=== PATIENT | female | born 1945 | race African-American/Black ===

== ENCOUNTER 2016-04-02 08:51 | Outpatient (CLI) | payer MEDICARE ==
[2016-04-02 09:49] LABS: Anion Gap 15 mmol/L (10-20); BUN (Urea Nitrogen) 29 mg/dL (9.8-20.1); BUN/Creatinine Ratio 22.66; Calc. Creatinine Clearance 0 mL/min (70-130); Calcium 9.3 mg/dL (7.8-10.44); Carbon Dioxide 24 mmol/L (23-31); Chloride 110 mmol/L (98-107); Estimated GFR-MDRD 50
[2016-04-02 10:52] LABS: Hematocrit 33.3 % (36.0-47.0); Mean Platelet Volume 7.8 fL (7.4-10.4); Red Blood Cell (RBC) Count 4.02 mill/uL (4.20-5.40); White Blood Cell (WBC) Count 6.5 thou/uL (4.8-10.8)
[2016-04-02 17:59] LABS: Phosphorus 3.8 mg/dL (2.3-4.7)
== END 2016-04-02 08:52 | disposition home or self-care (01) ==
LOC: BURLAB 08:51
PROVIDERS: ATTEND Internal Medicine Nephrology
DX: E11.22 Type 2 diabetes mellitus with diabetic chronic kidney disease (principal); N18.3 Chronic kidney disease, stage 3 (moderate); I12.9 Hypertensive chronic kidney disease with stage 1 through stage 4 chronic kidney disease, or unspecified chronic kidney disease; I73.9 Peripheral vascular disease, unspecified; N39.0 Urinary tract infection, site not specified; R80.9 Proteinuria, unspecified; M32.10 Systemic lupus erythematosus, organ or system involvement unspecified; M06.9 Rheumatoid arthritis, unspecified; I25.10 Atherosclerotic heart disease of native coronary artery without angina pectoris; M10.9 Gout, unspecified; K21.9 Gastro-esophageal reflux disease without esophagitis
CPT/HCPCS: 36415; 80069; 82570; 84156; 85027

== ENCOUNTER 2016-10-27 21:03 | Emergency (ER) | payer MEDICARE ==
[2016-10-27] MEDS ORDERED: HYDROcodone/Acetaminophen 5/325 mg Tablet ONE (21:31)
== END 2016-10-27 22:17 | disposition home or self-care (01) ==
LOC: BURERS 21:03
DX: T63.2X1A Toxic effect of venom of scorpion, accidental (unintentional), initial encounter (principal); E11.9 Type 2 diabetes mellitus without complications; I10 Essential (primary) hypertension; D64.9 Anemia, unspecified; I51.9 Heart disease, unspecified; F17.220 Nicotine dependence, chewing tobacco, uncomplicated; Z79.899 Other long term (current) drug therapy
CPT/HCPCS: 99282

== ENCOUNTER 2016-10-30 09:05 | Outpatient (CLI) | payer MEDICARE ==
[2016-10-30 09:35] LABS: #Basophils 0.1 thou/uL (0.0-0.2); #Eosinphils 0.1 thou/uL (0.0-0.7); #Lymphocytes 1.1 thou/uL (1.20-3.40); #Monocytes 0.5 thou/uL (0.11-0.59); #Neutrophils 5.3 thou/uL (1.40-6.50); %Basophils 0.7 % (0.0-1.0); %Eosinophils 1.9 % (0.0-10.0); %Lymphocytes 15.8 % (21.0-51.0); %Monocytes 7.2 % (0.0-10.0); %Neutrophils 74.5 % (42.0-75.0); Hemoglobin 10.8 g/dL (12.0-16.0); Mean Corpuscular HGB CONC 32.6 g/dL (32.0-36.0); Mean Corpuscular Hemoglobin 26.9 pg (27.0-31.0); Mean Corpuscular Volume 82.4 fl (81.0-99.0); Mean Platelet Volume 6.8 fL (7.4-10.4); Platelet Count 189 thou/uL (130-400); RBC Distribution Width 12.4 % (11.5-14.5); Red Blood Cell (RBC) Count 4.01 mill/uL (4.20-5.40); White Blood Cell (WBC) Count 7.2 thou/uL (4.8-10.8)
[2016-10-30 09:42] LABS: Bilirubin Negative (Negative); Blood, Urine Negative (Negative); Clarity Clear (Clear); Glucose, Urine (Dipstick) Negative (Negative); Leukocyte Trace (Negative); Nitrite Negative (Negative); Protein, Urine (Dipstick) Negative (Neg-Trace); Specific Gravity, Urine 1.015 (1.005-1.030); Urobilinogen 0.2 mg/dL (0.2-1.0); pH, Urine 5.5 (5.0-9.0)
[2016-10-30 09:51] LABS: Anion Gap 14 mmol/L (10-20); BUN (Urea Nitrogen) 33 mg/dL (9.8-20.1); BUN/Creatinine Ratio 25.19; Bacteria/HPF None Seen HPF (None Seen); Calc. Creatinine Clearance 0 mL/min (70-130); Calcium 9.6 mg/dL (7.8-10.44); Carbon Dioxide 23 mmol/L (23-31); Chloride 110 mmol/L (98-107); Crystals/HPF None Seen HPF (Negative); Estimated GFR-MDRD 48; Glucose 110 mg/dL (83-110); Hyaline Casts/LPF NONE SEEN LPF (0-3 Hyaline); Other Casts/LPF None Seen LPF (0-3 Hyaline); Oval Fat Bodies/HPF None Seen HPF (None Seen); Potassium 4.6 mmol/L (3.5-5.1); RBC/HPF None Seen HPF (0-3); Renal Epithelial None Seen HPF (0-3); Sodium 142 mmol/L (136-145); Sperm/HPF None Seen HPF (None Seen); Squamous Epithelial 0-3 HPF (0-3); Transitional Epithelial NONE SEEN HPF (0-3); Trichomonas/HPF None Seen HPF (None Seen); WBC/HPF 0-3 HPF (0-3); Yeast-All Forms None Seen HPF (None Seen)
[2016-10-30 15:43] LABS: Phosphorus 3.8 mg/dL (2.3-4.7)
[2016-10-30 16:33] LABS: Creatinine, Urine 115.61 mg/dL (47-110)
== END 2016-10-30 09:06 | disposition home or self-care (01) ==
LOC: BURLAB 09:05
PROVIDERS: ATTEND Internal Medicine Nephrology
DX: E11.22 Type 2 diabetes mellitus with diabetic chronic kidney disease (principal); I12.9 Hypertensive chronic kidney disease with stage 1 through stage 4 chronic kidney disease, or unspecified chronic kidney disease; N18.3 Chronic kidney disease, stage 3 (moderate); M06.9 Rheumatoid arthritis, unspecified; I25.10 Atherosclerotic heart disease of native coronary artery without angina pectoris; E11.51 Type 2 diabetes mellitus with diabetic peripheral angiopathy without gangrene; N39.0 Urinary tract infection, site not specified; R80.9 Proteinuria, unspecified; M32.10 Systemic lupus erythematosus, organ or system involvement unspecified; M10.9 Gout, unspecified; K21.9 Gastro-esophageal reflux disease without esophagitis
CPT/HCPCS: 36415; 80069; 81001; 82570; 84156; 85025

== ENCOUNTER 2019-09-23 16:15 | Emergency (ER) | payer MEDICARE ==
[~2019-09-23 16:15] MED LIST: Iopamidol 370 76% 100 ML VIAL ONE
[2019-09-23 16:50] LABS: #Basophils 0.1 thou/uL (0.0-0.2); #Eosinphils 0.1 thou/uL (0.0-0.7); #Lymphocytes 0.8 thou/uL (1.20-3.40); #Monocytes 0.5 thou/uL (0.11-0.59); #Neutrophils 7.4 thou/uL (1.40-6.50); %Basophils 0.7 % (0.0-1.0); %Eosinophils 1.5 % (0.0-10.0); %Lymphocytes 8.9 % (21.0-51.0); %Monocytes 6.1 % (0.0-10.0); %Neutrophils 82.9 % (42.0-75.0); Mean Corpuscular HGB CONC 30.8 g/dL (32.0-36.0); Mean Corpuscular Hemoglobin 25.2 pg (27.0-31.0); Mean Corpuscular Volume 81.9 fL (78.0-98.0); Mean Platelet Volume 8.2 fL (7.4-10.4); Platelet Count 252 thou/uL (130-400); RBC Distribution Width 12.2 % (11.5-14.5); Red Blood Cell (RBC) Count 3.99 mill/uL (4.20-5.40); White Blood Cell (WBC) Count 8.9 thou/uL (4.8-10.8)
[2019-09-23 17:06] LABS: ALT (SGPT) 12 U/L (8-55); AST (SGOT) 20 U/L (5-34); Albumin 3.1 g/dL (3.4-4.8); Alkaline Phosphatase 79 U/L (40-110); Anion Gap 18 mmol/L (10-20); BUN (Urea Nitrogen) 34 mg/dL (9.8-20.1); Bilirubin, Total 0.5 mg/dL (0.2-1.2); Calc. Creatinine Clearance 0 mL/min (70-130); Carbon Dioxide 21 mmol/L (23-31); Chloride 90 mmol/L (98-107); Estimated GFR-MDRD 32; Globulin 4.4 g/dL (2.4-3.5); Glucose 246 mg/dL (83-110); Potassium 4.4 mmol/L (3.5-5.1); Protein, Total 7.5 g/dL (6.0-8.3); Sodium 125 mmol/L (136-145)
--- NOTE | 2019-09-23 17:31 | CT ---
HEAD CT WITHOUT CONTRAST: Date: 09-23-2019 History: Frequent falls, vertigo, weakness. Technique: Axial CT imaging at 5 mm intervals from vertex through skull base without contrast. FINDINGS: The imaged paranasal sinuses and mastoid air cells are well aerated. No displaced calvarial fracture. No intracranial hemorrhage, midline shift, mass effect, or ventricular enlargement. IMPRESSION: NO acute findings. POS: OFF
[2019-09-23] MEDS ORDERED: Aspirin Chewable 81 MG TAB ONE (17:32)
[2019-09-23] MEDS ORDERED: Fentanyl 100 MCG/2 ML VIAL ONE (17:32)
--- NOTE | 2019-09-23 17:37 | RAD ---
FRONTAL RADIOGRAPH PELVIS AND FROGLEG LATERAL VIEW RIGHT HIP: Date: 09-23-2019 History: Recent fall, weakness, right hip pain. FINDINGS: The pelvic ring appears intact with no widening of the sacroiliac joints of the pubic symphysis. The femoral heads project normally over their respective acetabulum. There is superior joint space narrow ing involving the right hip with right acetabular osteophyte formation. No displaced fracture or disl ocation is seen. IMPRESSION: Degenerative change with no acute fracture or dislocation seen. POS: OFF
--- NOTE | 2019-09-23 17:43 | RAD ---
FRONTAL RADIOGRAPH CHEST: Date: 09-23-2019 Comparison: 07-10-2019 History: Recent falls with lightheadedness, cough, and generalized weakness. FINDINGS: Increased lung interstitial density is noted in the perihilar regions in both lung bases, left greate r than right. No pneumothorax or large volume pleural effusion is seen. There are coarse increased li near interstitial densities with probable bronchiectasis in the lung bases. Opacity in the lung bases has worsened since the 07-10-2019 exam and thus, superimposed infection cannot be excluded. IMPRESSION: Defuse increased interstitial density with a bibasilar predominance, left greater than right. Finding s may all be chronic in nature, but superimposed infectious pneumonitis cannot be excluded. POS: OFF
[2019-09-23] MEDS ORDERED: cefTRIAXone\\ROCEPHIN 2 GM VIAL ONE (18:12)
[2019-09-23] MEDS ORDERED: Azithromycin 500 MG VIAL ONE (18:12)
[2019-09-23] MEDS ORDERED: Sodium Chloride 0.9% 200 ML ONE (18:14)
[2019-09-23 19:42] LABS: Bilirubin Negative (Negative); Blood, Urine Trace (Negative); Clarity Slightly Cloudy (Clear); Glucose, Urine (Dipstick) Negative (Negative); Ketone, Urine Negative (Negative); Leukocyte Negative (Negative); Nitrite Negative (Negative); Protein, Urine (Dipstick) Negative (Neg-Trace); pH, Urine 5.5 (5.0-9.0)
[2019-09-23 19:44] LABS: Specific Gravity, Urine 1.006 (1.002-1.036)
[2019-09-23 20:11] LABS: Bacteria/HPF Rare-Few HPF (None Seen); RBC/HPF 0-3 HPF (0-3); Squamous Epithelial 0-3 HPF (0-3); WBC/HPF 0-3 HPF (0-3)
--- NOTE | 2019-09-23 20:46 | CT ---
CT ANGIOGRAM OF CHEST: Date: 09/23/2019 HISTORY: Recent falls with lightheadedness, cough, and generalized weakness. TECHNIQUE: Axial CT imaging at 2.5 mm intervals through the chest with IV contrast using CT angiogram protocol. Bilateral oblique 3D reformatted imaging obtained. FINDINGS: The thyroid gland is heterogeneous and contains multiple hypodense nodules measuring up to 1.7 cm on the left. Follow-up thyroid ultrasound suggested. Mildly prominent bilateral axillary lymph nodes are noted. There is damian prominence in the subcarinal region measuring 1.5 cm. Enlarged right paratrach eal and precarinal lymph nodes are noted measuring up to 1.3 cm. There is a prominent 1.1 cm right hi lar node and a 1.1 cm left hilar node. The main pulmonary artery is enlarged, suggesting pulmonary hypertension. No discrete filling defect is seen within the pulmonary arterial vasculature to suggest the presence of acute pulmonary thromboe mbolism. Please note that distal pulmonary arteries are not well assessed secondary to motion, partic ularly the distal pulmonary artery supplying bilateral lower lobes. Motion artifact limits detailed a ssessment of the upper abdomen. No significant pleural, pericardial or mediastinal fluid is seen. The left upper lobe demonstrates anterior medial bronchiectasis with subpleural cystic change and coa rse linear peripheral interstitial fibrotic changes. Within the left lower lobe, there is diffuse bro nchiectasis with prominent coarse linear interstitial density. Similar less severe findings are noted within the inferior right middle lobe and the right lower lobe inferiorly/medially. There is hazy gr ound-glass opacity within both lower lobes, but assessment is limited secondary to prominent motion a rtifact. Review of the osseous structures demonstrates no worrisome lytic or blastic bone lesions. IMPRESSION: 1. No central pulmonary arterial embolism. Motion artifact limits detailed assessment of the distal pulmonary arteries, as well as bilateral lower lobes. There are fibrotic changes with bronchiectasis bilaterally, left greater than right. Superimposed ground-glass opacity noted in both lung bases whic h may signify superimposed infectious pneumonitis, but could also simply be on the basis of prominent motion artifact. Recommend short-term follow-up imaging as clinically warranted. 2. Mediastinal and bilateral hilar adenopathy, nonspecific. 3. Thyroid nodules for which nonemergent follow-up thyroid ultrasound is advised. CODE T. POS: OFF
== END 2019-09-23 20:27 | disposition short-term general hospital (02) ==
LOC: BURERS 16:15
DX: J18.9 Pneumonia, unspecified organism (principal); E87.1 Hypo-osmolality and hyponatremia; D63.1 Anemia in chronic kidney disease; I12.9 Hypertensive chronic kidney disease with stage 1 through stage 4 chronic kidney disease, or unspecified chronic kidney disease; N18.3 Chronic kidney disease, stage 3 (moderate); E11.22 Type 2 diabetes mellitus with diabetic chronic kidney disease; F17.220 Nicotine dependence, chewing tobacco, uncomplicated; Z79.899 Other long term (current) drug therapy
CPT/HCPCS: 51701; 70450; 71045; 71275; 80053; 81003; 81015; 83880; 84484; 85025; 87040; 93005; 96361; 96365; 96366; 96375; J0456; J0696; J3010; J3490; Q9967

== ENCOUNTER 2019-10-02 18:02 | Inpatient (IN) | payer MEDICARE ==
[2019-10-02] MEDS ORDERED: SODIUM CHLORIDE 0.9% IV SCH (20:30)
[2019-10-02] MEDS ORDERED: [UNRECOGNIZED DRUG - OTHER] IV SCH (20:30)
[2019-10-02] MEDS: Carvedilol 25 MG TAB PO SCH (21:27)
[2019-10-02] MEDS: Megestrol Acetate 40 MG TAB PO SCH (21:27)
[2019-10-02] MEDS: Sodium Chloride 0.9% 1,000 ML IV SCH (21:28)
[2019-10-02 22:45] VITALS: BMI 20.3
[2019-10-03 05:18] LABS: Anion Gap 15 mmol/L (10-20); BUN (Urea Nitrogen) 59 mg/dL (9.8-20.1); Calc. Creatinine Clearance 17 mL/min (70-130); Calcium 8.3 mg/dL (7.8-10.44); Carbon Dioxide 15 mmol/L (23-31); Chloride 110 mmol/L (98-107); Estimated GFR-MDRD 24; Glucose 218 mg/dL (83-110); Potassium 4.3 mmol/L (3.5-5.1); Sodium 136 mmol/L (136-145)
[2019-10-03 05:54] LABS: Burr Cells SLIGHT = 2-5 cells (100X) (0-1/hpf); Hemoglobin 8.8 g/dL (12.0-16.0); Hypochromia SLIGHT = 6-15 cells (100X) (0-5/hpf); Lymphocytes 6 % (21-51); MDiff Complete? YES; Mean Corpuscular HGB CONC 30.7 g/dL (32.0-36.0); Mean Corpuscular Hemoglobin 25.4 pg (27.0-31.0); Mean Corpuscular Volume 82.7 fL (78.0-98.0); Mean Platelet Volume 8.3 fL (7.4-10.4); Monocytes 6 % (0-10); Neutrophil 86 % (42-75); Ovalocytes SLIGHT = 2-5 cells (100X) (0-1/hpf); Platelet Count 273 thou/uL (130-400); Platelet Morphology Comment Appears Adequate; RBC Distribution Width 13.1 % (11.5-14.5); Reactive Lymphocytes 1 % (0-10); Red Blood Cell (RBC) Count 3.45 mill/uL (4.20-5.40); White Blood Cell (WBC) Count 20.9 thou/uL (4.8-10.8)
[2019-10-03] MEDS ORDERED: Dextrose 5% in Water 1,000 ML IV PRN (07:13)
[2019-10-03] MEDS ORDERED: Dextrose 50% Abboject 50 ML SYRINGE SLOW IVP PRN (07:13)
[2019-10-03] MEDS ORDERED: Insulin Glargine 10 UNITS in Pre-Filled Syringe 1 EACH SC SCH (09:00)
[2019-10-03] MEDS: Hydroxychloroquine Sulfate 200 MG TAB PO SCH ×2 (09:22→21:10)
[2019-10-03] MEDS: predniSONE 20 MG TAB PO SCH (09:22)
[2019-10-03] MEDS: Carvedilol 25 MG TAB PO SCH ×2 (09:23→21:10)
[2019-10-03] MEDS: Enoxaparin Sodium 30 MG/0.3 ML SYRINGE SC SCH (09:23)
[2019-10-03] MEDS: Furosemide 20 MG TAB PO SCH (09:23)
[2019-10-03] MEDS: Megestrol Acetate 40 MG TAB PO SCH ×2 (09:23→21:10)
[2019-10-03] MEDS: HumaLOG 300 UNITS/3 ML VIAL SC PRN ×4 (09:23→21:12)
[2019-10-03] MEDS: Lantus 1000 UNITS/10 ML VIAL SC SCH (09:23)
[2019-10-03] MEDS: Saccharomyces boulardii 250 MG CAP PO SCH (09:23)
[2019-10-03] MEDS: Losartan Potassium 50 MG TAB PO SCH (09:23)
[2019-10-03] MEDS: Sodium Chloride 0.9% 1,000 ML IV SCH ×2 (09:49→23:44)
[2019-10-03] MEDS: Budesonide 0.5 MG/2 ML NEB INH SCH (18:15)
[2019-10-04 05:00] LABS: Lactic Acid 0.8 mmol/L (0.5-2.2)
[2019-10-04 05:03] LABS: #Basophils 0.1 thou/uL (0.0-0.2); #Eosinphils 0.1 thou/uL (0.0-0.7); #Lymphocytes 1.7 thou/uL (1.20-3.40); #Monocytes 1.9 thou/uL (0.11-0.59); #Neutrophils 21.1 thou/uL (1.40-6.50); %Basophils 0.4 % (0.0-1.0); %Eosinophils 0.4 % (0.0-10.0); %Lymphocytes 6.7 % (21.0-51.0); %Monocytes 7.7 % (0.0-10.0); %Neutrophils 84.8 % (42.0-75.0); Hemoglobin 8.4 g/dL (12.0-16.0); Mean Corpuscular HGB CONC 30.6 g/dL (32.0-36.0); Mean Corpuscular Hemoglobin 25.2 pg (27.0-31.0); Mean Corpuscular Volume 82.4 fL (78.0-98.0); Mean Platelet Volume 7.7 fL (7.4-10.4); Platelet Count 258 thou/uL (130-400); Red Blood Cell (RBC) Count 3.31 mill/uL (4.20-5.40); White Blood Cell (WBC) Count 24.8 thou/uL (4.8-10.8)
[2019-10-04 05:09] LABS: ALT (SGPT) Less than 7 U/L (8-55); AST (SGOT) 11 U/L (5-34); Albumin 2.2 g/dL (3.4-4.8); Alkaline Phosphatase 55 U/L (40-110); Anion Gap 12 mmol/L (10-20); BUN (Urea Nitrogen) 53 mg/dL (9.8-20.1); Bilirubin, Total 0.3 mg/dL (0.2-1.2); Calc. Creatinine Clearance 19 mL/min (70-130); Calcium 7.9 mg/dL (7.8-10.44); Carbon Dioxide 16 mmol/L (23-31); Chloride 113 mmol/L (98-107); Estimated GFR-MDRD 27; Glucose 197 mg/dL (83-110); Protein, Total 5.2 g/dL (6.0-8.3); Sodium 137 mmol/L (136-145)
[2019-10-04] MEDS: Budesonide 0.5 MG/2 ML NEB INH SCH ×2 (06:08→18:56)
[2019-10-04] MEDS ORDERED: Sodium Chloride 0.9% 1,000 ML IV SCH (06:57)
[2019-10-04] MEDS: Enoxaparin Sodium 30 MG/0.3 ML SYRINGE SC SCH (08:53)
[2019-10-04] MEDS: predniSONE 20 MG TAB PO SCH (08:54)
[2019-10-04] MEDS: Carvedilol 25 MG TAB PO SCH ×2 (08:54→20:19)
[2019-10-04] MEDS: Megestrol Acetate 40 MG TAB PO SCH ×2 (08:55→20:19)
[2019-10-04] MEDS: Hydroxychloroquine Sulfate 200 MG TAB PO SCH ×2 (08:55→20:19)
[2019-10-04] MEDS: Furosemide 20 MG TAB PO SCH (08:55)
[2019-10-04] MEDS: Losartan Potassium 50 MG TAB PO SCH (08:55)
[2019-10-04] MEDS: Saccharomyces boulardii 250 MG CAP PO SCH (08:56)
[2019-10-04] MEDS: Lantus 1000 UNITS/10 ML VIAL SC SCH (09:02)
[2019-10-04] MEDS: HumaLOG 300 UNITS/3 ML VIAL SC PRN ×3 (12:55→21:01)
[2019-10-05 05:37] LABS: ALT (SGPT) 7 U/L (8-55); AST (SGOT) 7 U/L (5-34); Albumin 2.3 g/dL (3.4-4.8); Alkaline Phosphatase 57 U/L (40-110); Anion Gap 13 mmol/L (10-20); BUN (Urea Nitrogen) 51 mg/dL (9.8-20.1); Bilirubin, Total 0.3 mg/dL (0.2-1.2); Calc. Creatinine Clearance 18 mL/min (70-130); Calcium 8.1 mg/dL (7.8-10.44); Carbon Dioxide 17 mmol/L (23-31); Chloride 113 mmol/L (98-107); Estimated GFR-MDRD 25; Globulin 3.1 g/dL (2.4-3.5); Glucose 246 mg/dL (83-110); Protein, Total 5.4 g/dL (6.0-8.3); Sodium 139 mmol/L (136-145)
[2019-10-05 05:55] LABS: #Eosinphils 0.1 thou/uL (0.0-0.7); #Lymphocytes 1.6 thou/uL (1.20-3.40); #Monocytes 1.6 thou/uL (0.11-0.59); #Neutrophils 23.4 thou/uL (1.40-6.50); %Basophils 0.1 % (0.0-1.0); %Eosinophils 0.6 % (0.0-10.0); %Lymphocytes 5.9 % (21.0-51.0); %Neutrophils 87.4 % (42.0-75.0); Hemoglobin 8.7 g/dL (12.0-16.0); Mean Corpuscular HGB CONC 29.9 g/dL (32.0-36.0); Mean Corpuscular Hemoglobin 24.7 pg (27.0-31.0); Mean Corpuscular Volume 82.6 fL (78.0-98.0); Mean Platelet Volume 7.5 fL (7.4-10.4); Platelet Count 272 thou/uL (130-400); RBC Distribution Width 13.2 % (11.5-14.5); Red Blood Cell (RBC) Count 3.52 mill/uL (4.20-5.40); White Blood Cell (WBC) Count 26.8 thou/uL (4.8-10.8)
[2019-10-05 06:22] LABS: Burr Cells SLIGHT = 2-5 cells (100X) (0-1/hpf); MDiff Complete? YES; Platelet Morphology Comment Appears Adequate; Poikilocytosis SLIGHT = 6-15 cells (100X) (0-5/hpf); Schistocytes SLIGHT = 2-5 cells (100X) (0-1/hpf)
[2019-10-05] MEDS: Budesonide 0.5 MG/2 ML NEB INH SCH ×2 (06:22→18:00)
[2019-10-05] MEDS: predniSONE 20 MG TAB PO SCH (08:37)
[2019-10-05] MEDS: Saccharomyces boulardii 250 MG CAP PO SCH (08:37)
[2019-10-05] MEDS: Carvedilol 25 MG TAB PO SCH ×2 (08:37→20:13)
[2019-10-05] MEDS: Hydroxychloroquine Sulfate 200 MG TAB PO SCH ×2 (08:37→20:17)
[2019-10-05] MEDS: Furosemide 20 MG TAB PO SCH (08:38)
[2019-10-05] MEDS: Megestrol Acetate 40 MG TAB PO SCH ×2 (08:38→20:13)
[2019-10-05] MEDS: Losartan Potassium 50 MG TAB PO SCH (08:38)
[2019-10-05] MEDS: Enoxaparin Sodium 30 MG/0.3 ML SYRINGE SC SCH (08:39)
[2019-10-05] MEDS ORDERED: Lantus 1000 UNITS/10 ML VIAL SC SCH (09:00)
[2019-10-05] MEDS: HumaLOG 300 UNITS/3 ML VIAL SC PRN ×2 (12:48→17:27)
--- NOTE | 2019-10-05 19:55 | RAD ---
PORTABLE CHEST: 10/05/19 An AP portable film at 0738 is compared with prior studies dated 09/26 and 07/10/19. The heart is upper normal in size but not substantially different than before. There are diffuse inte rstitial infiltrates present bilaterally but worse on the left than the right. My suspicion is that s ome degree of this is pulmonary edema, and some degree is likely chronic fibrosis looking at prior st udies but the more confluent area in the left upper lobe is such that I cannot exclude infection eith er. There are no large pleural effusions. IMPRESSION: Diffuse interstitial infiltrates which have worsened some since 09/22. Edema on top of fibrosis and po ssibly superimposed infection are all major considerations. POS: HOME
[2019-10-05] MEDS: cloNIDine 0.1 MG TAB PO PRN (20:13)
[2019-10-05] MEDS ORDERED: HumaLOG 300 UNITS/3 ML VIAL SC SCH (22:00)
[2019-10-06] MEDS: Budesonide 0.5 MG/2 ML NEB INH SCH ×2 (06:33→18:07)
[2019-10-06] MEDS: Lantus 1000 UNITS/10 ML VIAL SC SCH (09:12)
[2019-10-06] MEDS: Furosemide 20 MG TAB PO SCH (09:12)
[2019-10-06] MEDS: Enoxaparin Sodium 30 MG/0.3 ML SYRINGE SC SCH (09:12)
[2019-10-06] MEDS: Megestrol Acetate 40 MG TAB PO SCH ×2 (09:13→20:07)
[2019-10-06] MEDS: predniSONE 20 MG TAB PO SCH (09:13)
[2019-10-06] MEDS: Saccharomyces boulardii 250 MG CAP PO SCH (09:13)
[2019-10-06] MEDS: Carvedilol 25 MG TAB PO SCH ×2 (09:14→20:07)
[2019-10-06] MEDS: Hydroxychloroquine Sulfate 200 MG TAB PO SCH ×2 (09:14→20:07)
[2019-10-06] MEDS: Losartan Potassium 50 MG TAB PO SCH (09:14)
[2019-10-06] MEDS: HumaLOG 300 UNITS/3 ML VIAL SC PRN ×3 (09:19→17:45)
[2019-10-06] MEDS ORDERED: HumaLOG 300 UNITS/3 ML VIAL SC SCH (21:00)
[2019-10-07] MEDS: Budesonide 0.5 MG/2 ML NEB INH SCH ×2 (06:03→18:05)
[2019-10-07] MEDS: Furosemide 20 MG TAB PO SCH (08:49)
[2019-10-07] MEDS: Enoxaparin Sodium 30 MG/0.3 ML SYRINGE SC SCH (08:49)
[2019-10-07] MEDS: predniSONE 20 MG TAB PO SCH (08:49)
[2019-10-07] MEDS: Saccharomyces boulardii 250 MG CAP PO SCH (08:49)
[2019-10-07] MEDS: Hydroxychloroquine Sulfate 200 MG TAB PO SCH ×2 (08:50→20:26)
[2019-10-07] MEDS: Losartan Potassium 50 MG TAB PO SCH (08:50)
[2019-10-07] MEDS: Carvedilol 25 MG TAB PO SCH ×2 (08:50→20:26)
[2019-10-07] MEDS: Megestrol Acetate 40 MG TAB PO SCH ×2 (08:50→20:26)
[2019-10-07] MEDS: Lantus 1000 UNITS/10 ML VIAL SC SCH (08:54)
[2019-10-07] MEDS: HumaLOG 300 UNITS/3 ML VIAL SC PRN ×3 (13:00→20:26)
[2019-10-08] MEDS: cloNIDine 0.1 MG TAB PO PRN (05:03)
[2019-10-08] MEDS: Budesonide 0.5 MG/2 ML NEB INH SCH ×2 (06:24→18:07)
[2019-10-08 08:19] LABS: ALT (SGPT) 8 U/L (8-55); AST (SGOT) 10 U/L (5-34); Albumin 2.5 g/dL (3.4-4.8); Alkaline Phosphatase 53 U/L (40-110); Anion Gap 14 mmol/L (10-20); BUN (Urea Nitrogen) 45 mg/dL (9.8-20.1); Bilirubin, Total 0.4 mg/dL (0.2-1.2); Calc. Creatinine Clearance 22 mL/min (70-130); Calcium 8.4 mg/dL (7.8-10.44); Carbon Dioxide 20 mmol/L (23-31); Chloride 112 mmol/L (98-107); Estimated GFR-MDRD 32; Globulin 2.9 g/dL (2.4-3.5); Glucose 145 mg/dL (83-110); Potassium 3.7 mmol/L (3.5-5.1); Protein, Total 5.4 g/dL (6.0-8.3); Sodium 142 mmol/L (136-145)
[2019-10-08] MEDS: Megestrol Acetate 40 MG TAB PO SCH ×2 (08:32→20:54)
[2019-10-08] MEDS: Hydroxychloroquine Sulfate 200 MG TAB PO SCH ×2 (08:33→20:53)
[2019-10-08] MEDS: Carvedilol 25 MG TAB PO SCH ×2 (08:33→20:53)
[2019-10-08] MEDS: predniSONE 20 MG TAB PO SCH (08:33)
[2019-10-08] MEDS: Furosemide 20 MG TAB PO SCH (08:33)
[2019-10-08] MEDS: Losartan Potassium 50 MG TAB PO SCH (08:33)
[2019-10-08] MEDS: Saccharomyces boulardii 250 MG CAP PO SCH (08:33)
[2019-10-08] MEDS: Enoxaparin Sodium 30 MG/0.3 ML SYRINGE SC SCH (08:34)
[2019-10-08] MEDS: HumaLOG 300 UNITS/3 ML VIAL SC PRN ×3 (08:35→20:53)
[2019-10-08] MEDS: Lantus 1000 UNITS/10 ML VIAL SC SCH (08:35)
[2019-10-08 11:11] LABS: Hemoglobin 8.8 g/dL (12.0-16.0); MDiff Complete? YES; Mean Corpuscular HGB CONC 30.4 g/dL (32.0-36.0); Mean Corpuscular Hemoglobin 24.8 pg (27.0-31.0); Mean Corpuscular Volume 81.6 fL (78.0-98.0); Mean Platelet Volume 7.6 fL (7.4-10.4); Platelet Count 223 thou/uL (130-400); RBC Distribution Width 13.5 % (11.5-14.5); Red Blood Cell (RBC) Count 3.56 mill/uL (4.20-5.40); White Blood Cell (WBC) Count 27.1 thou/uL (4.8-10.8)
[2019-10-08 11:12] LABS: Anisocytosis SLIGHT = 6-15 cells (100X) (0-5/hpf); Burr Cells SLIGHT = 2-5 cells (100X) (0-1/hpf); Eosinophils 2 % (0-10); Hypochromia SLIGHT = 6-15 cells (100X) (0-5/hpf); Lymphocytes 8 % (21-51); Monocytes 5 % (0-10); Neutrophil 85 % (42-75); Platelet Morphology Comment Appears Adequate; Poikilocytosis SLIGHT = 6-15 cells (100X) (0-5/hpf)
[2019-10-09] MEDS: Budesonide 0.5 MG/2 ML NEB INH SCH ×2 (06:11→18:09)
[2019-10-09] MEDS: Enoxaparin Sodium 30 MG/0.3 ML SYRINGE SC SCH (08:26)
[2019-10-09] MEDS: predniSONE 20 MG TAB PO SCH (08:26)
[2019-10-09] MEDS: Carvedilol 25 MG TAB PO SCH ×2 (08:26→20:34)
[2019-10-09] MEDS: Furosemide 20 MG TAB PO SCH (08:27)
[2019-10-09] MEDS: Saccharomyces boulardii 250 MG CAP PO SCH (08:27)
[2019-10-09] MEDS: Megestrol Acetate 40 MG TAB PO SCH ×2 (08:27→20:34)
[2019-10-09] MEDS: Hydroxychloroquine Sulfate 200 MG TAB PO SCH ×2 (08:27→20:34)
[2019-10-09] MEDS: Lantus 1000 UNITS/10 ML VIAL SC SCH (08:32)
[2019-10-09] MEDS: HumaLOG 300 UNITS/3 ML VIAL SC PRN ×4 (08:33→20:35)
[2019-10-09] MEDS: Losartan Potassium 50 MG TAB PO SCH (09:39)
[2019-10-10] MEDS: Budesonide 0.5 MG/2 ML NEB INH SCH ×2 (06:02→17:44)
[2019-10-10] MEDS: Lantus 1000 UNITS/10 ML VIAL SC SCH (08:35)
[2019-10-10] MEDS: predniSONE 20 MG TAB PO SCH (08:36)
[2019-10-10] MEDS: Enoxaparin Sodium 30 MG/0.3 ML SYRINGE SC SCH (08:36)
[2019-10-10] MEDS: Carvedilol 25 MG TAB PO SCH ×2 (08:36→20:52)
[2019-10-10] MEDS: Saccharomyces boulardii 250 MG CAP PO SCH (08:36)
[2019-10-10] MEDS: Losartan Potassium 50 MG TAB PO SCH (08:37)
[2019-10-10] MEDS: Hydroxychloroquine Sulfate 200 MG TAB PO SCH ×2 (08:37→20:51)
[2019-10-10] MEDS: Furosemide 20 MG TAB PO SCH (08:37)
[2019-10-10] MEDS: Megestrol Acetate 40 MG TAB PO SCH ×2 (08:38→20:52)
[2019-10-10] MEDS: HumaLOG 300 UNITS/3 ML VIAL SC PRN ×3 (12:32→20:52)
[2019-10-11] MEDS: Budesonide 0.5 MG/2 ML NEB INH SCH ×2 (06:01→17:53)
[2019-10-11] MEDS: Enoxaparin Sodium 30 MG/0.3 ML SYRINGE SC SCH (09:18)
[2019-10-11] MEDS: Saccharomyces boulardii 250 MG CAP PO SCH (09:18)
[2019-10-11] MEDS: Furosemide 20 MG TAB PO SCH (09:19)
[2019-10-11] MEDS: Carvedilol 25 MG TAB PO SCH ×2 (09:19→20:32)
[2019-10-11] MEDS: predniSONE 20 MG TAB PO SCH (09:19)
[2019-10-11] MEDS: Megestrol Acetate 40 MG TAB PO SCH ×2 (09:19→20:32)
[2019-10-11] MEDS: Lantus 1000 UNITS/10 ML VIAL SC SCH (09:19)
[2019-10-11] MEDS: Losartan Potassium 50 MG TAB PO SCH (09:20)
[2019-10-11] MEDS: Hydroxychloroquine Sulfate 200 MG TAB PO SCH ×2 (09:20→20:37)
[2019-10-11] MEDS: HumaLOG 300 UNITS/3 ML VIAL SC PRN ×2 (12:54→17:52)
[2019-10-11] MEDS: hydrALAZINE 25 MG TAB PO SCH ×2 (15:04→20:32)
[2019-10-12 05:29] LABS: #Basophils 0.1 thou/uL (0.0-0.2); #Eosinphils 0.1 thou/uL (0.0-0.7); #Lymphocytes 2.2 thou/uL (1.20-3.40); #Monocytes 1.7 thou/uL (0.11-0.59); #Neutrophils 20.3 thou/uL (1.40-6.50); %Basophils 0.4 % (0.0-1.0); %Eosinophils 0.4 % (0.0-10.0); %Monocytes 6.9 % (0.0-10.0); %Neutrophils 83.2 % (42.0-75.0); Hemoglobin 8.5 g/dL (12.0-16.0); Mean Corpuscular HGB CONC 30.6 g/dL (32.0-36.0); Mean Corpuscular Hemoglobin 25.4 pg (27.0-31.0); Mean Platelet Volume 8.7 fL (7.4-10.4); Platelet Count 198 thou/uL (130-400); RBC Distribution Width 14.3 % (11.5-14.5); Red Blood Cell (RBC) Count 3.35 mill/uL (4.20-5.40); White Blood Cell (WBC) Count 24.4 thou/uL (4.8-10.8)
[2019-10-12 05:31] LABS: ALT (SGPT) 8 U/L (8-55); AST (SGOT) 11 U/L (5-34); Albumin 2.5 g/dL (3.4-4.8); Alkaline Phosphatase 53 U/L (40-110); Anion Gap 13 mmol/L (10-20); BUN (Urea Nitrogen) 50 mg/dL (9.8-20.1); Bilirubin, Total 0.3 mg/dL (0.2-1.2); Calc. Creatinine Clearance 20 mL/min (70-130); Calcium 8.2 mg/dL (7.8-10.44); Carbon Dioxide 22 mmol/L (23-31); Chloride 109 mmol/L (98-107); Estimated GFR-MDRD 29; Glucose 125 mg/dL (83-110); Potassium 4.2 mmol/L (3.5-5.1); Protein, Total 5.5 g/dL (6.0-8.3); Sodium 140 mmol/L (136-145)
[2019-10-12] MEDS: Budesonide 0.5 MG/2 ML NEB INH SCH ×3 (05:41→17:18)
[2019-10-12] MEDS ORDERED: Promethazine DM 6.25-15mg/5ml 120 ML BOT PO PRN (07:21)
[2019-10-12] MEDS: Ferrous Sulfate 325 MG TAB PO SCH (08:58)
[2019-10-12] MEDS: hydrALAZINE 25 MG TAB PO SCH ×3 (08:59→20:07)
[2019-10-12] MEDS: Carvedilol 25 MG TAB PO SCH ×2 (08:59→20:06)
[2019-10-12] MEDS: Hydroxychloroquine Sulfate 200 MG TAB PO SCH ×2 (08:59→20:06)
[2019-10-12] MEDS: Enoxaparin Sodium 30 MG/0.3 ML SYRINGE SC SCH (08:59)
[2019-10-12] MEDS: Furosemide 20 MG TAB PO SCH (09:00)
[2019-10-12] MEDS: Saccharomyces boulardii 250 MG CAP PO SCH (09:00)
[2019-10-12] MEDS: predniSONE 20 MG TAB PO SCH (09:00)
[2019-10-12] MEDS: Megestrol Acetate 40 MG TAB PO SCH ×2 (09:00→20:06)
[2019-10-12] MEDS: Lantus 1000 UNITS/10 ML VIAL SC SCH (09:01)
[2019-10-12] MEDS: Guaifenesin DM 100-10/5 ML UDCUP PO PRN ×2 (13:13→20:06)
[2019-10-12] MEDS: HumaLOG 300 UNITS/3 ML VIAL SC PRN ×3 (13:14→20:07)
[2019-10-13] MEDS: Guaifenesin DM 100-10/5 ML UDCUP PO PRN ×3 (00:09→20:42)
[2019-10-13] MEDS: Budesonide 0.5 MG/2 ML NEB INH SCH ×2 (05:19→18:18)
[2019-10-13] MEDS: Megestrol Acetate 40 MG TAB PO SCH ×2 (09:07→20:10)
[2019-10-13] MEDS: predniSONE 20 MG TAB PO SCH (09:07)
[2019-10-13] MEDS: hydrALAZINE 25 MG TAB PO SCH ×3 (09:08→20:10)
[2019-10-13] MEDS: Carvedilol 25 MG TAB PO SCH ×2 (09:09→20:10)
[2019-10-13] MEDS: Enoxaparin Sodium 30 MG/0.3 ML SYRINGE SC SCH (09:09)
[2019-10-13] MEDS: Hydroxychloroquine Sulfate 200 MG TAB PO SCH ×2 (09:09→20:10)
[2019-10-13] MEDS: Ferrous Sulfate 325 MG TAB PO SCH (09:09)
[2019-10-13] MEDS: Saccharomyces boulardii 250 MG CAP PO SCH (09:09)
[2019-10-13] MEDS: Furosemide 20 MG TAB PO SCH (09:09)
[2019-10-13] MEDS: Lantus 1000 UNITS/10 ML VIAL SC SCH (09:11)
[2019-10-13] MEDS: HumaLOG 300 UNITS/3 ML VIAL SC PRN ×3 (12:30→20:13)
[2019-10-14] MEDS: Budesonide 0.5 MG/2 ML NEB INH SCH ×2 (07:04→17:58)
[2019-10-14] MEDS: Hydroxychloroquine Sulfate 200 MG TAB PO SCH ×2 (09:20→20:24)
[2019-10-14] MEDS: hydrALAZINE 25 MG TAB PO SCH ×3 (09:21→20:24)
[2019-10-14] MEDS: Carvedilol 25 MG TAB PO SCH ×2 (09:21→20:23)
[2019-10-14] MEDS: predniSONE 20 MG TAB PO SCH (09:22)
[2019-10-14] MEDS: Saccharomyces boulardii 250 MG CAP PO SCH (09:22)
[2019-10-14] MEDS: Megestrol Acetate 40 MG TAB PO SCH ×2 (09:23→20:24)
[2019-10-14] MEDS: Furosemide 20 MG TAB PO SCH (09:23)
[2019-10-14] MEDS: Ferrous Sulfate 325 MG TAB PO SCH (09:23)
[2019-10-14] MEDS: Enoxaparin Sodium 30 MG/0.3 ML SYRINGE SC SCH (09:23)
[2019-10-14] MEDS: Lantus 1000 UNITS/10 ML VIAL SC SCH (09:24)
[2019-10-14] MEDS: HumaLOG 300 UNITS/3 ML VIAL SC PRN ×3 (12:58→20:18)
[2019-10-14] MEDS: Guaifenesin DM 100-10/5 ML UDCUP PO PRN (17:58)
[2019-10-15 05:25] VITALS: TEMP 98.6
[2019-10-15 05:27] LABS: #Basophils 0.1 thou/uL (0.0-0.2); #Eosinphils 0.1 thou/uL (0.0-0.7); #Lymphocytes 1.7 thou/uL (1.20-3.40); #Monocytes 1.4 thou/uL (0.11-0.59); #Neutrophils 21.3 thou/uL (1.40-6.50); %Basophils 0.4 % (0.0-1.0); %Eosinophils 0.2 % (0.0-10.0); %Monocytes 5.5 % (0.0-10.0); %Neutrophils 86.9 % (42.0-75.0); Hemoglobin 8.2 g/dL (12.0-16.0); Mean Corpuscular HGB CONC 29.9 g/dL (32.0-36.0); Mean Corpuscular Hemoglobin 25.5 pg (27.0-31.0); Mean Corpuscular Volume 85.2 fL (78.0-98.0); Mean Platelet Volume 7.6 fL (7.4-10.4); Platelet Count 184 thou/uL (130-400); RBC Distribution Width 14.1 % (11.5-14.5); Red Blood Cell (RBC) Count 3.23 mill/uL (4.20-5.40); White Blood Cell (WBC) Count 24.6 thou/uL (4.8-10.8)
[2019-10-15 05:47] LABS: ALT (SGPT) Less than 7 U/L (8-55); AST (SGOT) 16 U/L (5-34); Albumin 2.5 g/dL (3.4-4.8); Alkaline Phosphatase 53 U/L (40-110); Anion Gap 15 mmol/L (10-20); BUN (Urea Nitrogen) 58 mg/dL (9.8-20.1); Bilirubin, Total 0.3 mg/dL (0.2-1.2); Calc. Creatinine Clearance 17 mL/min (70-130); Calcium 8.1 mg/dL (7.8-10.44); Carbon Dioxide 21 mmol/L (23-31); Chloride 110 mmol/L (98-107); Estimated GFR-MDRD 24; Globulin 2.9 g/dL (2.4-3.5); Glucose 151 mg/dL (83-110); Potassium 4.6 mmol/L (3.5-5.1); Protein, Total 5.4 g/dL (6.0-8.3); Sodium 141 mmol/L (136-145)
[2019-10-15] MEDS: Budesonide 0.5 MG/2 ML NEB INH SCH (06:16)
--- NOTE | 2019-10-15 08:03 | RAD ---
PORTABLE CHEST: DATE: 10/15/2019. FINDINGS: An AP portable film at 0538 is compared with several prior chest films. Chronic interstitial changes are present. The more confluent area seen on some of the recent films that are thought to be superi mposed pneumonia have improved. What is left now is a diffuse interstitial pattern that I presume is the patient's baseline fibrosis, bronchiectasis, etc. There are no large effusions. Mild cardiomeg mahogany is present as usual. There is no gross congestion of vessels. IMPRESSION: Severe chronic changes, but overall, the appearance of the chest has improved with a reduction in con fluent areas since films done last month. POS: HOME
[2019-10-15] MEDS: Lantus 1000 UNITS/10 ML VIAL SC SCH (09:31)
[2019-10-15] MEDS: Enoxaparin Sodium 30 MG/0.3 ML SYRINGE SC SCH (09:31)
[2019-10-15] MEDS: Furosemide 20 MG TAB PO SCH (09:32)
[2019-10-15] MEDS: hydrALAZINE 25 MG TAB PO SCH (09:32)
[2019-10-15] MEDS: Megestrol Acetate 40 MG TAB PO SCH (09:32)
[2019-10-15] MEDS: Carvedilol 25 MG TAB PO SCH (09:32)
[2019-10-15] MEDS: predniSONE 20 MG TAB PO SCH (09:32)
[2019-10-15] MEDS: Hydroxychloroquine Sulfate 200 MG TAB PO SCH (09:32)
[2019-10-15] MEDS: Ferrous Sulfate 325 MG TAB PO SCH (09:33)
[2019-10-15] MEDS: Saccharomyces boulardii 250 MG CAP PO SCH (09:33)
[2019-10-15 09:51] VITALS: BP 159/70
--- NOTE | 2019-10-16 00:52 | DIS ---
DATE OF ADMISSION: 10/02/2019 DATE OF DISCHARGE: 10/15/2019 ADMISSION DIAGNOSES: Physical deconditioning, bacterial pneumonia, interstitial lung disease, acute kidney injury on chronic kidney disease, type 2 diabetes mellitus, hypertension, and rheumatoid arthritis. PROCEDURES PERFORMED: 10/05/2019, chest x-ray showed diffuse interstitial infiltrates, which have worsened some since 09/23/2019, edema on top of fibrosis and possibly superimposed infection or all major considerations, 10/15/2019 chest x- ray shows severe chronic changes, but overall the appearance of the chest has improved with reduction in confluent areas since films done last month. HOSPITAL COURSE: 73-year-old female presented to our facility to participate with long term and physical therapy and occupational therapy secondary to physical deconditioning. Prior to this, she was admitted at [facility] in [place], where she presented with generalized weakness, falls and shortness of breath. She was notably hypoxic with subsequent imaging revealing bibasilar infiltrates along with concerns related to interstitial lung disease. Secondary to these findings, the patient was evaluated by Pulmonology with recommendations for an extended steroid course along with treatment at our facility with IV Levaquin 750 mg q.48 hours. The patient is to remain on continuous supplemental oxygen indefinitely. Beyond this, she is to follow up with Pulmonology as an outpatient. During the patient's stay at our facility, she was able to participate with physical therapy and occupational therapy and did improve in regard to her functional status and mobility. Her glucose readings trended high secondary to prednisone therapy for which she was started on insulin with dose titrated to her glucose readings. Lab trends showed the patient to have a persistent leukocytosis, which is also likely influenced by the prednisone therapy. The patient did remain afebrile throughout her stay. Her renal function fluctuated between stage III and stage IV while present with other labs largely remaining stable. The patient has been set up with home oxygen and with [facility] for further continuity of care. At this time she is amenable to discharge back to her home setting with home health in conjunction with further steroid tapering and continuous supplemental oxygen. DISPOSITION: The patient was discharged home, where she lives with family members. She may follow up with myself in one week in the clinic and follow up with Pulmonology as an outpatient as advised. She will have [facility] for further continuity of care including long term, physical therapy and occupational therapy. DISCHARGE MEDICATIONS: 1. DuoNeb 3 mL nebs q.6 hours p.r.n. 2. Carvedilol 25 mg b.i.d. 3. Ferrous sulfate 325 mg daily. 4. Furosemide 20 mg daily. 5. Hydralazine 25 mg t.i.d. 6. Hydroxychloroquine 200 mg b.i.d. 7. Lantus 25 units daily. 8. Megace 40 mg b.i.d. 9. Pantoprazole 40 mg daily. 10. Prednisone 40 mg x7 days, then 20 mg x7 days, then 10 mg x7 days. TIME SPENT: Total time preparing and coordinating discharge is 35 minutes. Job ID: [id number] MTDD
--- NOTE | 2019-10-17 22:18 | PQF ---
CLINICAL DOCUMENTATION CLARIFICATION FORM: Dear : Yoni Christie MD Date / Time: 10/17/2019 Please exercise your independent, professional judgment in responding to the clarification form. Clinical indicators are provided on the bottom of this form for your review Please check appropriate box(es): [ ] Physical deconditioning due to LACEY [ x ] Physical deconditioning due to interstitial lung disease [ x] Physical deconditioning due to Pneumonia [ x ] Physical deconditioning due to Age related debility [ ] Other diagnosis (Please specify if any) [ ] Unable to determine Physician Signature: Date/Time: For continuity of documentation, please document condition throughout progress notes and discharge summary. Thank You. To be completed by CDI/Coding staff for physician review: w Present w Clinical Indicators - Signs / Symptoms / Labs w Results and Location in Medical Record w [x ] w Physical deconditioning w Discharge Summary on 10/14 w [ x ] w Bacterial pneumonia, interstitial lung disease, acute kdiney injury w Discharge Summary on 10/14 w [ x ] w She was able to participate with physical therapy and occupational therapy and did improve in regard to her functional and mobility status w Discharge Summary on 10/14 w [ x] w [facility] of care including care home, physical therapy and occupational therapy w Discharge Summary on 10/14 w Present w Risk Factors w Results and Location in Medical Record w [ x ] w Aged person: 73 yrs w Discharge Summary on 10/14 w [ ] w w w [ ] w w w [ ] w w w Present w Treatments w Results and Location in Medical Record w [x ] w Sodium chloride 1,000 ml w Medications on from 10/01 to 10/03 w [ x] w Levoflaxin 750mg w Medications on from 10/03 to 10/14 w [ x ] w Albuterol 3ml neb w Medications on from 10/08 to 10/14 w [ x] w PT and OT evaluation/ treat routine w Orders on 10/01 [facility]S/[facility] [employer] Signature: RK Phone #: Date/Time: 10/17/2019 This is a permanent part of the Medical Record [facility]
== END 2019-10-15 16:20 | disposition home or self-care (01) | DRG 196 ==
LOC: BURMED 19:08
PROVIDERS: ADMIT Family Medicine; ATTEND Family Medicine
DX: J84.9 Interstitial pulmonary disease, unspecified (principal); J15.9 Unspecified bacterial pneumonia; E87.2 Acidosis; N17.9 Acute kidney failure, unspecified; N18.4 Chronic kidney disease, stage 4 (severe); R53.81 Other malaise; E11.65 Type 2 diabetes mellitus with hyperglycemia; E11.22 Type 2 diabetes mellitus with diabetic chronic kidney disease; I12.9 Hypertensive chronic kidney disease with stage 1 through stage 4 chronic kidney disease, or unspecified chronic kidney disease; M06.9 Rheumatoid arthritis, unspecified; T38.0X5A Adverse effect of glucocorticoids and synthetic analogues, initial encounter
CPT/HCPCS: 36415; 36416; 71045; 80048; 80053; 83605; 85025; 94640; J1650; J1815; J1956; J7050; J7512; J7620; J7626; S0179

== ENCOUNTER 2019-12-24 11:56 | Outpatient (CLI) | payer MEDICARE ==
--- NOTE | 2019-12-24 18:46 | RAD ---
LEFT RIBS FOUR VIEWS: Date: 12-24-2019 Comparison: 12-06-2019 chest film, as well as a few older ones. FINDINGS: No fracture or bony abnormality was appreciated at this time. Patient has diffuse fibrotic changes th roughout the lungs bilaterally, a little more prominent on the left than the right. No effusions or p neumothorax was present. There was a little focal pleural thickening in the apex of the left lung. Re ferring to a CT done in September, that study showed a considerable amount of thickening, probably assoc iated with infection or prior infection in that location. Additionally, fibrosis and bronchiectasis w ere noted throughout the lungs bilaterally. IMPRESSION: No acute bony findings. POS: HOME
== END 2019-12-24 11:57 | disposition home or self-care (01) ==
LOC: BURRAD 11:56
PROVIDERS: ATTEND Family Medicine
DX: R07.81 Pleurodynia (principal)